=== PATIENT | male | born 1965 ===

== ENCOUNTER 2024-10-01 06:19 | Day surgery (SDC) | payer OTHER, SELFPAY ==
[2024-10-01 09:23] VITALS: BMI 28.0
[2024-10-01 09:24] VITALS: BP 160/94
[2024-10-01 11:14] VITALS: BP 142/96
[2024-10-01 11:15] VITALS: BP 151/95
[2024-10-01 11:30] VITALS: BP 158/98
[2024-10-01 11:45] VITALS: BP 160/98
[2024-10-01 12:00] VITALS: BP 173/104
== END 2024-10-01 12:29 | disposition home or self-care (01) ==
LOC: SDS 06:19
PROVIDERS: ATTENDING PHYSICIAN Internal Medicine Gastroenterology
DX: K86.0 Alcohol-induced chronic pancreatitis (principal); K86.89 Other specified diseases of pancreas; K86.2 Cyst of pancreas; R93.3 Abnormal findings on diagnostic imaging of other parts of digestive tract; R93.2 Abnormal findings on diagnostic imaging of liver and biliary tract; Z72.0 Tobacco use
CPT/HCPCS: 43242; 88172; 88173; 88305